=== PATIENT | male | born 1980 | race Caucasian/White ===

== ENCOUNTER 2017-09-18 12:29 | Emergency (ER) | payer SELFPAY ==
[~2017-09-18] VITALS: Ht 175.3 cm; Wt 124.7 kg
--- OUTSIDE RECORDS SUMMARY | 2017-09-18 12:44 | External Medical Summary Rpt | CCD ---
Author Author [facility] Organization [facility] Address Unknown Phone Unavailable Purpose Continuity of Care Document - through 2016
--- OUTSIDE RECORDS SUMMARY | 2017-09-18 12:44 | External Medical Summary Rpt | CCD ---
Demographics Preferred Language Jordanian Marital Status Unknown Sikh Affiliation Unknown Race Unknown Ethnic Group Unknown Author Author , NEL NEUMANN Address Unknown Phone Purpose Continuity of Care Document - through 2016
--- OUTSIDE RECORDS SUMMARY | 2017-09-18 12:44 | External Medical Summary Rpt | CCD ---
Demographics Preferred Language Maldivian Marital Status Unknown Yazidi Affiliation Unknown Race Unknown Ethnic Group Unknown Author Author , NEL NEUMANN Address Unknown Phone Purpose Continuity of Care Document - through 2016
--- OUTSIDE RECORDS SUMMARY | 2017-09-18 12:45 | External Medical Summary Rpt | CCD ---
Demographics Preferred Language Khmer Marital Status Unknown Jain Affiliation Unknown Race Unknown Ethnic Group Unknown Author Author , NEL NEUMANN Address Unknown Phone Immunization Unable to retrieve immunization data due to connection failure with Immunization Registry. Please try again later.
--- OUTSIDE RECORDS SUMMARY | 2017-09-18 12:45 | External Medical Summary Rpt | CCD ---
Demographics Preferred Language Hungarian Marital Status Unknown Nondenominational Affiliation Unknown Race Unknown Ethnic Group Unknown Author Author , NEL NEUMANN Address Unknown Phone Immunization Unable to retrieve immunization data due to connection failure with Immunization Registry. Please try again later.
--- NOTE | 2017-09-18 12:49 | Emergency Room Report ---
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 N Clinical Suspician of Infection? N Mental Status: 1 - Regular (Normal Baseline) Sepsis Risk:Low Sepsis Risk Have you (or family members/close friends) recently traveled outside the [place]? N If Yes, where/when: Have you had exposure to infectious disease within the past month? TB? Other? Specify: 37 years old white male was cooking when he suffered the laceration. No loss of movement no loss of sensations. 2 cm on the proximal phalanx of the first digit. Denies ALLERGIES. Source patient, RN notes reviewed Exam Limitations no limitations ALLERGIES Coded Allergies: No Known Allergies (09/18/17) History Medical History Immunization Hx Ped.Immunizations UTD Yes DT/Tetanus 5-10 Years Ago Surgical Hx Previous Surgery?N Social History Smoking Hx Smoker: Never Smoker Tobacco: No Type N/A Are you/the child exposed to second-hand smoke: No Alcohol Alcohol: No Review of Systems All Other Systems Reviewed and Negative Constitutional no symptoms reported Eyes no symptoms reported ENT no symptoms reported. Respiratory no symptoms reported Cardiovascular no symptoms reported Gastrointestinal no symptoms reported Genitourinary no symptoms reported. Musculoskeletal no symptoms reported Skin see HPI Psychiatric/Neurological no symptoms reported Physical Exam Vital Signs Vital Signs Date Time Temp Pulse Resp B/P Pulse O2 O2 Flow FiO2 Ox Delivery Rate 09/18 1237 98.3 85 18 156/79 98 - WBC >12,000 or <4,000 or 10% bands? 2 or more SIRS Criteria Met? B/P:156/79 MAP:104 Creatinine >2.0? UA output<0.5ml/kg/hr for 2 hrs? Platelet count >100,000? Lactate >2.0mmol/1? INR >1.2 or PTT > than 60 sec? Evidence of Organ Dysfunction? Provider documented clinical suspician of infection? N Sepsis Criteria Count: 0 Sepsis Risk: Low Sepsis Risk General Appearance normal appearance, WD/WN Eye Exam - bilateral eye normal exam, bilateral eye PERRL, bilateral eye EOMI Ear, Nose, Throat hearing grossly normal, normal ENT inspection Neck normal inspection, non-tender, supple, full range of motion Respiratory Status Yes: trachea midline, chest symmetrical, non tender chest. No: respiratory distress. Lung Sounds bilateral: normal breath sounds, lungs clear. 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 No Results/Orders Current Medication Orders Sig/Jarrod Start time Last Medication Dose Route Stop Time Status Admin Lidocaine HCl 0 .STK-MED ONE 09/18 1237 DC .ROUTE Procedures Laceration/Wound Repair Laceration/Wound Repair Risks/benefits discussed with pt/guardian? Yes Tetanus status up to date Wound Location finger(s) Wound Length (cm) 2 Wound's Depth, Shape sucutaneous tissue, linear, flap(s) Wound Explored no FB identified Risk of retained FB explained to pt/guardian? No Wound Prep Hibiclens Anesthesia 2% Lidocaine Volume Anesthetic (ccs) 6 Wound Debrided none Wound Repaired With sutures Suture Size/Type 4:0 Layer Closure No Total Number Sutures 2 Sterile Dressing Applied Yes Splint Applied Yes Type of Splint Applied Finger splint and alma taping Departure Departure Time of Disposition 1247 Disposition DC Home or Self Care(routine) Clinical Impression Primary Impression: Laceration of finger of right hand without foreign body without damage to nail Condition STABLE Referrals TAMY APPLE, AMARIS Additional Instructions 1- FIGER SPLINT AND ALMA TAPE. 2- 2 DAYS WOUND RECHECK. 3- 10 DAYS STITCH REMOVAL. 4- NEED PCP FOR BP MONITOR AND MANAGEMENT. Discharge Counseling Counseled pt/family regarding diagnosis, home care, follow up needs ED Critical Care Critical Care No If Critical Care minutes are documented, the time involved in the performance of seperately reportable procedures was not counted toward critical care time documented. I directly delivered medical care to this critically ill and/or injured patient. Timely evaluation and treatment was necessary to address the significant organ system(s) dysfunction present in this patient. at 2399
[2017-09-18 13:53] VITALS: BP 153/96
== END 2017-09-18 14:00 | disposition home or self-care (01) ==
LOC: ER 12:29
PROC: 0HQFXZZ Repair Right Hand Skin, External Approach (ICD-10-PCS; principal; 2017-09-18)
DX: S61.212A Laceration without foreign body of right middle finger without damage to nail, initial encounter (principal); W45.8XXA Other foreign body or object entering through skin, initial encounter; Y92.010 Kitchen of single-family (private) house as the place of occurrence of the external cause